=== PATIENT | male | born 1975 | race Caucasian/White ===

== ENCOUNTER → 2019-07-13 | Outpatient (CLI) | payer OTHER ==
--- NOTE | 2019-07-14 08:37 | REP ---
CT paranasal sinuses: 07/13/2019. Indication: Sinusitis. Comparison: None. Technique: Axial images of the paranasal sinuses were performed with coronal reconstructions provided. Findings: There are no air-fluid levels, frothy secretions or significant periosteal mucosal thickening within the paranasal sinuses. The sinonasal passageways are patent. There is rightward deviation of the nasal septum. No significant ocular, intraorbital or intracranial abnormalities are present. Impression: No CT evidence of significant paranasal sinus disease. Electronically Signed by Max Wright DO 07/14/2019 08:28 A
== END ==
LOC: M RAD 17:32
PROVIDERS: ATTEND Otolaryngology
DX: J32.4 Chronic pansinusitis (principal)